=== PATIENT | female | born 2000 | race Two or more races ===

== ENCOUNTER 2024-04-07 18:40 | Emergency (ER) | payer MEDICAID, SELFPAY ==
[2024-04-07 18:40] VITALS: BMI 32.9
[2024-04-07 18:58] VITALS: BP 116/79; PULSE 81; RESP 16; TEMP 37.4; O2SAT 97
--- NOTE | 2024-04-07 18:59 | EDRME_ITS ---
Rapid Medical Screening Exam [facility] Arrival date/time: 04/07/24 18:40 24F with history of GERD presents to ED with 3 days of worsening epigastric pain and N/V. Patient denies dysuria and diarrhea. Chief Complaint: Abdominal Pain Vital signs: Vital Signs Temperature 99.3 F 04/07/24 18:58 Pulse Rate 81 04/07/24 18:58 Respiratory Rate 16 04/07/24 18:58 Blood Pressure 116/79 04/07/24 18:58 Pulse Oximetry (%) 97 04/07/24 18:58 Oxygen Delivery Method Room Air 04/07/24 18:58
[2024-04-07] MEDS: ONDANSETRON ODT 4 MG TABRAP PO (19:13)
[2024-04-07] MEDS: FAMOTIDINE 20 MG TABLET 40 MG PO (19:14)
[2024-04-07] MEDS: MG HYD/AL HYD/SIME (Maalox Reg) SUSP 30 ML UDC PO (19:15)
[2024-04-07 19:40] LABS: Basophils % (Auto) 0 % (0-2.5); Eosinophils # (Auto) 0.3 Thou/mm3 (0.0-0.5); Eosinophils % (Auto) 5 % (0-10); Hemoglobin 13.8 g/dL (12.0-16.0); Immature Granulocytes % (Auto) 0 % (0-0); Immature Granulocytes Auto 0.01 Thou/mm3 (0.00-0.00); Lymphocytes # (Auto) 1.7 Thou/mm3 (1.0-4.8); Lymphocytes % (Auto) 33 % (10-50); Mean Corpuscular HGB Conc 33.7 g/dl (31.0-37.0); Mean Corpuscular Hemoglobin 31.1 pg (25.0-35.0); Mean Corpuscular Volume 92 fL (80-100); Monocytes # (Auto) 0.5 Thou/mm3 (0.0-0.8); Monocytes % (Auto) 10 % (0-12); Neutrophils # (Auto) 2.7 Thou/mm3 (1.8-7.7); Neutrophils % (Auto) 53 % (37-80); Nucleated Red Blood Cell % 0 /100 WBC (0); Platelet Count 245 Thou/mm3 (140-440); RDW Standard Deviation 42.3 fL (36.4-46.3); Red Blood Count 4.44 Miln/mm3 (4.00-5.20); White Blood Count 5.2 Thou/mm3 (3.6-11.0)
[2024-04-07 19:46] LABS: HCG Qualitative,Urine Negative
[2024-04-07 19:54] LABS: Amphetamine/Methamp Scrn,U Negative (Negative); Barbiturate Screen,Urine Negative (Negative); Benzodiazepines Screen,Urine Negative (Negative); Benzoylecgonine Screen, Ur Negative (Negative); Fentanyl Screen,Urine Negative (Negative); Opiate Screen,Urine Negative (Negative); THC Screen,Urine Negative (Negative)
[2024-04-07 20:00] LABS: Alanine Aminotransferase 25 U/L (10-49); Albumin, Serum 4.7 gm/dL (3.5-5.0); Albumin/Globulin Ratio 2.1 (1.2-2.2); Alkaline Phosphatase 58 U/L (46-116); Anion Gap 5 (7-16); Aspartate Amino Transferase 17 U/L (0-34); BUN/Creatinine Ratio 14 Ratio (12-20); Bilirubin,Total 0.4 mg/dL (0.3-1.2); Blood Urea Nitrogen 10 mg/dL (9-23); Calcium 9.1 mg/dL (8.3-10.6); Calcium (Corrected) 9.1 mg/dL (8.5-10.1); Carbon Dioxide 27.7 mMol/L (20.0-31.0); Chloride 105 mMol/L (98-107); Creatinine (Component) 0.7 mg/dL (0.6-1.3); Estimated Creatinine Clearance 120.6 mL/min (>60); Globulin 2.2 gm/dL (2.3-3.5); Glucose 92 mg/dL (74-106); Lipase 33 U/L (12-53); Osmolality,Calculated 274 (275-295); Sodium 138 mMol/L (136-145); Total Protein 6.9 gm/dL (5.7-8.2); eGFR > 60 See Note
--- NOTE | 2024-04-07 20:09 | PD.EDABDPN ---
ED Abdominal Pain RME/HPI General Chief Complaint: Abdominal Pain Stated complaint: UPPER ABD PAIN WITH VOMITING X3DAYS Time seen by provider: 04/07/24 20:03 Arrival date/time: 04/07/24 18:40 RME / HPI RME / HPI narrative: 24-year-old female patient with significant history of GERD, came in for evaluation regarding worsening epigastric pain with nausea and vomiting nonbloody. Denies any fever. Denies any cough. Denies any diarrhea or constipation. Denies any other complaints. No medication was taken prior travel. Related Data Previous Rx's ?Medication ?Instructions ?Recorded pantoprazole 40 mg tablet,delayed 40 mg PO QDAY #20 tabs 10/09/22 release (Protonix) ondansetron HCl 4 mg tablet 4 mg PO Q8H PRN nausea and 04/07/24 vomiting 5 days #20 tabs pantoprazole 40 mg tablet,delayed 40 mg PO QDAY #30 tabs 04/07/24 release (Protonix) Allergies Allergy/AdvReac Type Severity Reaction Status Date / Time No Known Allergies Allergy Verified 04/07/24 18:42 Review of Systems Review of Systems Narrative Review of Systems: Review of system reviewed and within normal limits except mentioned in HPI ED Exam Narrative Physical exam: VITAL SIGNS: Reviewed. GENERAL APPEARANCE: Alert and interactive, follows commands, no acute distress, HEAD AND FACE: Non-traumatic. ENT: PERRL, pink conjunctivitis, eyelid no trauma, Mucous membrane moist. NECK: Supple, nontender, no nuchal rigidity. CHEST: No tenderness, no crepitus, no paradoxical movement, no retractions. LUNGS: Clear, well ventilated, symmetric, no rales, no wheezing, no ronchi, no stridor, good breath sounds bilaterally. HEART: Regular rate, regular rhythm, no murmur, no gallops. ABDOMEN: Soft, positive bowel sounds, nondistended, no guarding, epigastric tenderness, no rebound, no masses, RECTAL: Deferred. GENITAL: Deferred. NEUROLOGICAL: Gross motor function intact sensory function intact, Appropriate for age. MUSCULOSKELETAL: low back nontender, full range of motion. EXTREMITIES: Nontender, full range of motion. SKIN: Color pink, dry, no rash, no lacerations, no abrasions, no contusions. LYMPHATICS: Deferred. Course Quality Measures none Orders Category Date Time Status CBC Stat Lab 04/07/24 19:09 Completed CMP [Comprehensive Metabolic Panel] Stat Lab 04/07/24 19:09 Completed Drug Screen,Urine Stat Lab 04/07/24 19:29 Completed HCG Qualitative,Urine Stat Lab 04/07/24 19:29 Completed Lipase Stat Lab 04/07/24 19:09 Completed Famotidine [Pepcid] Med 04/07/24 18:59 Discontinued 40 mg PO X1 ONE Ondansetron Odt [Zofran Odt] Med 04/07/24 19:00 Discontinued 4 mg PO X1 ONE mg Hyd/Al Hyd/Leah Susp [Maalox Susp] Med 04/07/24 18:59 Discontinued 30 ml PO X1 ONE mg Hyd/Al Hyd/Leah Susp [Maalox Susp] Med 04/07/24 19:09 Discontinued 30 ml PO X1 ONE Vital Signs Vital signs: Vital Signs Temperature 99.3 F 04/07/24 18:58 Pulse Rate 81 04/07/24 18:58 Respiratory Rate 16 04/07/24 18:58 Blood Pressure 116/79 04/07/24 18:58 Pulse Oximetry (%) 97 04/07/24 18:58 Oxygen Delivery Method Room Air 04/07/24 18:58 Abdominal Pain MDM MDM Narrative MDM Narrative:: 24-year-old female patient with significant history of GERD, came in for evaluation regarding worsening epigastric pain with nausea and vomiting nonbloody. Denies any fever. Denies any cough. Denies any diarrhea or constipation. Denies any other complaints. No medication was taken prior travel. Patient's workup today all came back normal. Patient was given Maalox, Pepcid and Zofran with complete resolution of symptoms. Imaging is not needed at this time, patient is not having any pain after patient was given gastritis medication. Patient data External records reviewed:: None Clinical information provided by:: none Social determinants that could affect healthcare access:: none Patient has the following chronic illnesses:: None How is presenting disease/condition affected by chronic disease/condition?: no chronic disease Evaluation data The following diagnostics were reviewed and interpreted by me:: lab results Lab and/or radiology exams considered but not ordered:: None Interpretation Summary: Laboratory workup all came back unremarkable. Medications / Prescriptions Medications or Prescriptions considered but not ordered:: None Medication administrations:: Medication Administration History Discontinued Medications Al Hydrox/Mg Hydrox/Simethicone (Mg Hyd/Al Hyd/Leah (Maalox Reg) Susp 30 Ml Udc) 30 ml PO X1 ONE Stop: 04/07/24 19:00 Last Admin: 04/07/24 19:15 Dose: Not Given Documented By: JULIO CÉSAR Non-Admin Reason: Duplicate Medication on eMAR Al Hydrox/Mg Hydrox/Simethicone (Mg Hyd/Al Hyd/Leah (Maalox Reg) Susp 30 Ml Udc) 30 ml PO X1 ONE Stop: 04/07/24 19:10 Last Admin: 04/07/24 19:15 Dose: 30 ml Documented By: JULIO CÉSAR Famotidine (Famotidine 20 Mg Tablet) 40 mg PO X1 ONE Stop: 04/07/24 19:00 Last Admin: 04/07/24 19:14 Dose: 40 mg Documented By: JULIO CÉSAR Ondansetron HCl (Ondansetron Odt 4 Mg Tabrap) 4 mg PO X1 ONE; Protocol Stop: 04/07/24 19:01 Last Admin: 04/07/24 19:13 Dose: 4 mg Documented By: Bryn Goodman and Maalox Consultations Consultation(s) initiated? (list below): No Diagnosis Differential diagnosis abdominal pain: abdominal pain, pancreatitis and other (Gastritis) Most likely diagnosis given after review of the tests above:: Gastritis Admission Indicated Admission indicated?: not indicated Explain why admission is indicated or not indicated:: Stable for discharge Admission Request Was there a request for admission?: No Disposition Plan Disposition Plan: Discharge Discharge Attestation Discharge Attestation: The patient was given an opportunity to ask questions and understood the discharge instructions. Discharge instructions specifically effects, indications for sooner follow up or return to the emergency department, and the expected course of current diagnosis. Patient condition: Stable Discharge Plan Plan Patient Disposition: HOME (Self Care) Disposition Comment: stable Prescriptions/Referrals Prescriptions/Med Rec: New pantoprazole [Protonix] 40 mg tablet,delayed release (DR/EC) 40 mg PO QDAY Qty: 30 0RF ondansetron HCl 4 mg tablet 4 mg PO Q8H PRN (Reason: nausea and vomiting) 5 Days Qty: 20 0RF No Action pantoprazole [Protonix] 40 mg tablet,delayed release (DR/EC) 40 mg PO QDAY Qty: 20 0RF Referrals: Kemi Dailey, [facility] [Primary Care Provider] - In 1 week Problem List Clinical Impression: Acute epigastric pain, Gastritis Patient/Caregiver Discharge Instructions Discharge Activity: activity as tolerated Education Materials: Understanding Gastritis Additional Instructions: Thank you for the opportunity for serving you today. You are stable for discharged . You are advised to: Follow-up with your PCP in 1 to 2 days Return to ED for worsening of symptoms Increase oral fluids Take medication as prescribed Print Language: Moldovan Stand Alone Forms: [employer] Award Info., Patient Portal Info Letter PA/EXTENSION CLERK Supervising Physician PA/EXTENSION CLERK Supervising Physician: MD Dillan
== END 2024-04-07 20:30 | disposition home or self-care (01) ==
PROVIDERS: Physician Assistant; Emergency Provider Emergency Medicine; PCP Nurse Practitioner Women's Health
DX: K29.70 Gastritis, unspecified, without bleeding (principal)
CPT/HCPCS: 36415; 80053; 80307; 81025; 83690; 85025; 99283; Q0162; A9270